=== PATIENT | female | born 1945 | race Caucasian/White ===

== ENCOUNTER 2023-10-25 17:53 | Emergency (ER) | payer MEDICARE, SELFPAY ==
[2023-10-25 18:01] VITALS: BP 130/64
--- NOTE | 2023-10-25 18:28 | ED.GENMED ---
History of Present Illness
General
Chief Complaint: Head Injury
Source: patient
Time Seen by Provider: 10/25/23 18:17
History of Present Illness
History of Present Illness:
77-year-old female presents to the emergency room for evaluation after suffering a fall. Patient states that she fell backwards striking the back of her head. She has pain in the in the location where she struck her head and a mild generalized
headache. No nausea or vomiting. She did not lose consciousness. She denies neck or back pain. She was ambulatory after the fall.
Phy Exam
Physical Exam
Physical Exam:
General: Awake, Alert, Oriented X3. No acute distress.
Vitals: unremarkable
Head: Atraumatic
Eyes: Pupils equal, EOMI, mild occipital tenderness and swelling
Throat: Airway intact, no exudates
Neck: Trachea midline, no midline tenderness to palpation, no pain with range of motion
Lungs: Clear and equal b/l
Heart: Regular rate, no murmurs
Abd: Soft, Nontender, No pulsatile mass
Neuro: Nonfocal
Skin: Warm, dry, no rash
Extremities: pulses equal b/l, no edema
Course
Orders/Labs/Results
Orders:
Orders
10/25/23 18:27
CT Cervical Spine W/o Iv Contr Urgent
Comment:
Reason For Exam: neck pain s/p fall
CT Head W/o Iv Contrast Urgent
Comment:
Reason For Exam: head injury
Acetaminophen [Tylenol] 650 mg PO NOW STA
Vital Signs
Initial and Last Documented VS:
Initial Vital Signs
Temp Pulse Resp BP Pulse Ox
98.3 F 68 16 130/64 98
10/25/23 18:01 10/25/23 18:01 10/25/23 18:01 10/25/23 18:01 10/25/23 18:01
Last Documented Vital Signs
Temp Pulse Resp BP Pulse Ox
98.3 F 68 16 130/64 98
10/25/23 18:01 10/25/23 18:01 10/25/23 18:01 10/25/23 18:01 10/25/23 18:01
MDM/Problems Addressed
Differential Diagnosis Includes:
Subdural, subarachnoid hemorrhage, contusion, concussion
MDM/Problems Addressed:
Patient presents after head injury. CT of the head and neck showed no acute abnormalities. Patient is alert and does not appear to feel uncomfortable in any way. Stable for discharge home.
*Critical Care Note
Total Time (30-74mins, 75-104mins- exclusive of procedures): Not Applicable
ED Attending Note
-
Portions of this chart may have been created with voice recognition software.� Occasional wrong word or��sound alike� substitutions may have occurred due to the inherent limitations of voice recognition software.
Discharge Plan
Departure
Patient Disposition: Home (Routine Discharge)
Date of Disposition: 10/25/23
Time of Disposition: 18:57
Patient with high blood pressure during this ER visit?: No
Condition: Good
Discharge Problem:
Head injury
Instructions: Head Injury in Adults (DC)
Interventions
Interventions:
*Risk Screen - Suicide Last Done: 10/25/23 18:01
*General Assessment Last Done: 10/25/23 18:01
*Neglect/Abuse Screening Last Done: 10/25/23 18:01
*ED COVID-19 Vaccine History Last Done: 10/25/23 18:43
*Nursing Disposition Last Done: 10/25/23 19:21
ED- Neurological Assessment Last Done: 10/25/23 18:44
ED-Skin Assessment Last Done: 10/25/23 18:44
Discharge Date and Time
Discharge Date/Time: 10/25/23 19:23
Print Language: BRAZILIAN
[2023-10-25] MEDS: TYLENOL 650 MG PO (18:42)
[2023-10-25 18:45] VITALS: BMI 33.1
== END 2023-10-25 19:23 | disposition home or self-care (01) ==
LOC: EMR 17:53
PROVIDERS: EMERGENCY PHYSICIAN Emergency Medicine; FAMILY PHYSICIAN Family Medicine
DX: S09.90XA Unspecified injury of head, initial encounter (principal); W19.XXXA Unspecified fall, initial encounter
CPT/HCPCS: 99284; 70450; 72125

== ENCOUNTER → 2023-11-20 16:25 | Outpatient (REF) | payer MEDICARE, SELFPAY | LOC: RAD 16:25 | PROVIDERS: ATTENDING PHYSICIAN Internal Medicine; FAMILY PHYSICIAN Family Medicine | DX: N18.32 Chronic kidney disease, stage 3b (principal) | CPT/HCPCS: 76770 ==

== ENCOUNTER 2024-03-01 11:28 | Emergency (ER) | payer MEDICARE, SELFPAY ==
[2024-03-01 11:30] VITALS: BP 93/72
--- NOTE | 2024-03-01 11:55 | ED.GENMED ---
History of Present Illness
General
Chief Complaint: Fall
Source: patient and family
Time Seen by Provider: 03/01/24 11:45
History of Present Illness
History of Present Illness:
78-year-old female with past medical history of atrial fibrillation, CAD status postacute RI, hypertension, hyperlipidemia, zum-[id number] diabetes presenting to the emergency department after she stumbled over a door sill causing her to fall
down striking her left shoulder and head onto the ground and also stating has some mild discomfort to both knees. There was no reported loss consciousness, vomiting, vision changes but patient reports that she is on Xarelto due to her history of
atrial fibrillation. Presently notes some mild comfort to the left shoulder but otherwise states 'I feel pretty good'.
Past History
Past History
ED Past Medical History: Arrthythmia, CAD, HTN, Hypercholesterolemia, NIDDM and [place]
ED Past Surgical History: Cardiac, Cholecystectomy, Orthopedic and Tonsilectomy
Social History
Tobacco: Non-smoker
Alcohol: None
Drug: None
Living: with family
Review of Systems
Review of Systems
All Other Systems: ROS reviewed and negative except as documented in HPI and ROS
Phy Exam
Physical Exam
Physical Exam:
GENERAL: Alert , in no apparent distress
HEAD: NCAT
EYE: conjunctiva clear
NECK: Supple, no midline ttp
ENT: o/p clr, mmm.
CARDIAC: Bradycardic rate and rhythm, systolic murmur
LUNGS: Clear breath sounds bilaterally, no acute respiratory distress, no wheezes/rales/rhonchi
NEUROLOGICAL: Alert and oriented
SKIN: Warm and dry, abrasion left lateral deltoid
MUSCULOSKELETAL: well perfused.
PSYCH: Normal and appropriate interaction.
Scores
Heart Failure Risk
Heart Failure Risk Score: Not Applicable
Heart Score for Chest Pain Patients
STEMI patient?: Not applicable
Withdrawal Assessment of Alcohol
Withdrawal Assessment Completed?: Not applicable
Course
Orders/Labs/Results
Orders:
Orders
03/01/24 11:38
EKG [Electrocardiogram (*1)] Urgent
Reason for Study: Bradycardia / Tachycardia
EKG- Treatment ONCE
03/01/24 11:45
CT Cervical Spine W/o Iv Contr Urgent
Comment:
Reason For Exam: fall, on xarelto
CT Head W/o Iv Contrast Urgent
Comment:
Reason For Exam: fall, on xarelto
Vital Signs
Initial and Last Documented VS:
Initial Vital Signs
Temp Pulse Resp BP Pulse Ox
97.7 F 56 16 93/72 99
03/01/24 11:30 03/01/24 11:30 03/01/24 11:30 03/01/24 11:30 03/01/24 11:30
Last Documented Vital Signs
Temp Pulse Resp BP Pulse Ox
97.7 F 54 16 148/64 97
03/01/24 11:30 03/01/24 12:16 03/01/24 12:16 03/01/24 12:16 03/01/24 12:16
MDM/Problems Addressed
Differential Diagnosis Includes:
Contusion, concussion, intracranial bleeding
MDM/Problems Addressed:
78-year-old female presenting to the emergency department for evaluation following accidental trip and fall resulting in mild head injury. Patient is anticoagulated on Xarelto so CT scan of the head and cervical spine were. Patient does have a
small abrasion to the left lateral shoulder. She is otherwise in no acute distress. Patient has a walker and cane that she uses at home to help her ambulate. Anticipate discharge home pending CT scan.
*Radiology
Radiology exam reviewed: radiology read reviewed
*Pulse Oximetry
Patient hypoxic: no
*Critical Care Note
Total Time (30-74mins, 75-104mins- exclusive of procedures): Not Applicable
Data Reviewed
Review of Other/Old Records Reveals: Records
Patient Management
Escalation/DeEscalation of care consider admission/obs:
Imaging is unremarkable for any acute pathologies. Patient stable for discharge home and aware of return precautions to the ER.
ED Attending Note
-
Portions of this chart may have been created with voice recognition software.� Occasional wrong word or��sound alike� substitutions may have occurred due to the inherent limitations of voice recognition software.
Discharge Plan
Departure
Patient Disposition: Home (Routine Discharge)
Date of Disposition: 03/01/24
Time of Disposition: 12:47
Patient with high blood pressure during this ER visit?: Yes
Discharge Problem:
Accidental fall, Head injury, Abrasion of left shoulder
Instructions: Preventing falls in adults
Referrals:
Wan Shaw, DO [Family Provider] -
Interventions
Interventions:
*Risk Screen - Suicide Last Done: 03/01/24 11:30
*General Assessment Last Done: 03/01/24 11:30
*Neglect/Abuse Screening Last Done: 03/01/24 11:30
ED- Fall Risk Assessment Last Done: 03/01/24 11:54
*ED COVID-19 Vaccine History Last Done: 03/01/24 11:30
*Nursing Disposition Last Done: 03/01/24 12:45
ED-Musculoskeletal Assessment Last Done: 03/01/24 11:53
ED- Neurological Assessment Last Done: 03/01/24 11:53
Discharge Date and Time
Discharge Date/Time: 03/01/24 12:45
Print Language: ICELANDIC
[2024-03-01 12:16] VITALS: BP 148/64
== END 2024-03-01 12:45 | disposition home or self-care (01) ==
LOC: EMR 11:28
PROVIDERS: EMERGENCY PHYSICIAN Student in an Organized Health Care Education/Training Program; FAMILY PHYSICIAN Family Medicine
DX: S09.90XA Unspecified injury of head, initial encounter (principal); S40.212A Abrasion of left shoulder, initial encounter; W18.09XA Striking against other object with subsequent fall, initial encounter; I25.10 Atherosclerotic heart disease of native coronary artery without angina pectoris; E11.9 Type 2 diabetes mellitus without complications; E78.00 Pure hypercholesterolemia, unspecified; I10 Essential (primary) hypertension; I25.2 Old myocardial infarction; I48.91 Unspecified atrial fibrillation; Z79.01 Long term (current) use of anticoagulants; Z90.49 Acquired absence of other specified parts of digestive tract
CPT/HCPCS: 99284; 70450; 72125; 93005

== ENCOUNTER 2024-03-14 11:06 | Emergency (ER) | payer MEDICARE, SELFPAY ==
[2024-03-14 11:08] VITALS: BP 171/73
--- NOTE | 2024-03-14 11:47 | ED.GENMED ---
History of Present Illness
General
Chief Complaint: Abdominal Symptoms
Source: patient
Exam Limitations: none
Time Seen by Provider: 03/14/24 11:45
Nursing documentation reviewed up to this point in time: agreed with
History of Present Illness
History of Present Illness:
78-year-old female with history of CAD, HTN, HLD, [place], GERD, NIDDM, A-fib with cardioversion, TAVR, bypass x 2, cholecystectomy, tonsillectomy presents from urgent care, has known umbilical hernia she's had for years and never bothered her until 4:30
a.m. awakened with 'horrible' 01/30 pain and area seems more protruding today. As she has been up and around pain now 11/30. Went to and sent here. Denies n/v/d/c.
Past History
Past History
ED Past Medical History: Arrthythmia, CAD, HTN, Hypercholesterolemia, NIDDM and GA
ED Past Surgical History: Cardiac, Cholecystectomy, Orthopedic and Tonsilectomy
Social History
Tobacco: Non-smoker
Alcohol: None
Drug: None
Living: with family
Review of Systems
Review of Systems
Allergies reviewed?: Yes
All Other Systems: ROS reviewed and negative except as documented in HPI and ROS
Constitutional: Denies fever
Respiratory: Denies trouble breathing
Cardiac: Denies chest pain
ABD/GI: Reports abdominal pain (mid epigastric area at site of chronic hernia); Denies nausea, vomiting, diarrhea, constipated or anorexia
: Denies dysuria or difficulty voiding
Musculoskeletal: Reports no symptoms
Skin: Reports no symptoms
Neurological: Reports no symptoms
Phy Exam
Physical Exam
Physical Exam:
GENERAL: No acute distress. A&Ox3.
CONSTITUTIONAL: Afebrile.
EYES: clear, conjunctivae normal
ENMT: moist mucus membranes, Pharynx nl
RESPIRATORY: Regular respirations, nonlabored, lungs clear.
CARDIOVASCULAR: Regular rate and rhythm, no murmurs, no rubs.
GI: Soft, obese, small orange sized tender soft protrusion mid epigastric area. normal BS
MUSCULOSKELETAL: Moves with ease. Well perfused. No edema
SKIN: Warm, dry, pink
PSYCH: Normal mood and affect. Well kept, interactive and appropriate
NEUROLOGIC: Awake, alert and oriented. No focal neurological deficits
Course
Orders/Labs/Results
Orders:
Orders
03/14/24 12:08
CT Abd/pel Without Iv Or Oral Urgent
Reason For Exam: pain with protruding (known hernia) upper mid abd
03/14/24 12:29
Complete Blood Count/With Diff Urgent
Comprehensive Metabolic Panel Urgent
Abnormal Lab Results
03/14/24
12:29
RBC 3.64 L 10^6/uL
(4.20-5.40)
Hgb 10.4 L g/dL
(12.0-16.0)
Hct 33.5 L %
(37.0-47.0)
MCHC 31.0 L g/dL
(33.0-37.0)
RDW 15.4 H %
(11.5-14.5)
BUN 34 H mg/dl
(7-17)
Creatinine 1.8 H mg/dL
(0.6-1.0)
Glucose 145 H mg/dl
(70-99)
03/14/24 12:29
03/14/24 12:29
Vital Signs
Initial and Last Documented VS:
Initial Vital Signs
Temp Pulse Resp BP Pulse Ox
97.9 F 56 18 171/73 97
03/14/24 11:08 03/14/24 11:08 03/14/24 11:08 03/14/24 11:08 03/14/24 11:08
Last Documented Vital Signs
Temp Pulse Resp BP Pulse Ox
97.9 F 60 16 117/70 97
03/14/24 11:08 03/14/24 14:00 03/14/24 14:00 03/14/24 14:00 03/14/24 14:00
MDM/Problems Addressed
Differential Diagnosis Includes:
hernia, strangulated hernia
MDM/Problems Addressed:
78-year-old female with history of CAD, HTN, HLD, GA, GERD, NIDDM, A-fib with cardioversion, TAVR, bypass x 2, cholecystectomy, tonsillectomy presents from urgent care, has known umbilical hernia she's had for years and never bothered her until 4:30
a.m. awakened with 'horrible' 01/30 pain and area seems more protruding today. States 'it never buldged out like this.' As she has been up and around pain a little improved, now 11/30. Went to and sent here. Denies n/v/d/c.
Afebrile, NAD
Abd with soft tender protrusion the size of a small orange mid upper abdomen area
Unable to reduce it at this time.
1:00 p.m.
CBC no clinically significant abnormality
CMP BUN/Creat 34/1.8 GFR 28[address] scan changed to plain w/o IV contrast. She does say she has kidney issues and has appt with Dr. Haskins in April.
3:[address] abd/pelvis radiology report read: IMPRESSION:
There is an anterior abdominal wall hernia containing only fat.
Some relief of pain after attempt to reduce and pt states it does feel better if she pushes on it.
Pt states pain in 10
Unable to reduce it after two attempts.
She is referred to general surgery.
*Critical Care Note
Total Time (30-74mins, 75-104mins- exclusive of procedures): Not Applicable
ED Attending Note
-
Portions of this chart may have been created with voice recognition software.� Occasional wrong word or��sound alike� substitutions may have occurred due to the inherent limitations of voice recognition software.
Discharge Plan
Departure
Patient Disposition: Home (Routine Discharge)
Date of Disposition: 03/14/24
Time of Disposition: 15:54
Patient with high blood pressure during this ER visit?: No
Condition: Good
Discharge Problem:
Abdominal wall hernia
Instructions: Abdominal wall hernias
Prescriptions:
No Action
atorvastatin [Lipitor] 40 mg Tablet
80 mg PO DAILY
torsemide 20 mg Tablet
20 mg PO DAILY
topiramate 25 mg Tablet
25 mg PO QPM
levothyroxine [Synthroid] 112 mcg Tablet
112 mcg PO DAILY
acetaminophen [Tylenol] 325 mg Tablet
650 mg PO QPM
gabapentin 400 mg Capsule
400 mg PO BID
glipizide 5 mg Tablet Extended Release 24hr
5 mg PO DAILY
melatonin 3 mg Tablet
3 mg PO HS
pantoprazole [Protonix] 40 mg Tablet,Delayed Release (Dr/Ec)
40 mg PO DAILY
allopurinol 300 mg Tablet
300 mg PO DAILY
zolpidem [Ambien] 5 mg Tablet
5 mg PO HSPRN PRN (Reason: sleep)
oxybutynin chloride 5 mg Tablet
5 mg PO QPM
cholecalciferol (vitamin D3) [Vitamin D3] 25 mcg (1,000 unit) Tablet
25 mcg PO DAILY
Tradjenta 5 mg Tablet
5 mg PO QPM
Xarelto 15 mg Tablet
15 mg PO DAILY
Jardiance 25 mg Tablet
25 mg PO DAILY
Referrals:
Narciso Peguero MD [Active] - Call in 1-3 days for appt
Wan Shaw DO [Family Provider] -
Activity Restrictions/Additional Instructions:
As we discussed, you have a hernia with some fat protrusion, nothing worrisome.
Call the general surgeon's office and make next available appointment.
Tylenol 1000 mg every 8 hours as needed for mild pain.
You may lay flat on your back and try to push it in like I showed you.
Return here immediately for worsening pain, unrelieved with pushing on it.
Interventions
Interventions:
*Risk Screen - Suicide Last Done: 03/14/24 11:11
*General Assessment Last Done: 03/14/24 12:28
*Neglect/Abuse Screening Last Done: 03/14/24 11:11
ED- Fall Risk Assessment Last Done: 03/14/24 13:46
OW-Oswubz-Scteubdajf Assessment Last Done: 03/14/24 12:28
Discharge Date and Time
Print Language: FRENCH
[2024-03-14 12:28] VITALS: BMI 35.3
[2024-03-14 12:38] LABS: % Basophils 0.5 % (0-2); % Eosinophils 1.2 % (0-6); % Immature Granulocytes 0.3 % (0-0.5); % Lymphocytes 29.8 % (20.5-51.1); % Monocytes 7.4 % (1.7-9.3); % Neutrophils 60.8 % (42.2-75.2); Absolute Eosinophils 0.1 10^3/uL (0-0.7); Absolute Lymphocytes 1.9 10^3/uL (1.2-3.4); Absolute Monocytes 0.5 10^3/uL (0.1-0.6); Absolute Neutrophils 3.9 10^3/uL (1.4-6.5); Hematocrit 33.5 % (37.0-47.0); Hemoglobin 10.4 g/dL (12.0-16.0); Mean Corpuscular Hgb 28.6 pg (27.0-31.0); Mean Platelet Volume 9.8 fL (7.4-10.4); Nucleated Red Blood Cells % 0 %; Platelet Count 147 10^3/uL (130-400); Red Blood Cell Count 3.64 10^6/uL (4.20-5.40); Red Cell Dist. Width 15.4 % (11.5-14.5); White Blood Cell Count 6.5 10^3/uL (4.8-10.8)
[2024-03-14 12:57] LABS: ALT (SGPT) 19 U/L (0-35); AST (SGOT) 24 U/L (14-36); Albumin 4.6 g/dl (3.5-5.0); Alkaline Phosphatase 103 U/L (38-126); Blood Urea Nitrogen 34 mg/dl (7-17); Calcium 9.7 mg/dl (8.4-10.2); Carbon Dioxide 27 mmol/L (22-30); Chloride 103 mmol/L (98-107); Estimated Creatinine Clearance 24 ml/min; Glucose 145 mg/dl (70-99); Potassium 4.4 mmol/L (3.5-5.1); Sodium 141 mmol/L (135-145); Total Bilirubin 0.6 mg/dl (0.2-1.3); Total Protein 7.3 g/dl (6.3-8.2); eGFR 28.48
[2024-03-14 14:00] VITALS: BP 117/70
[2024-03-14 16:35] VITALS: BP 135/74
== END 2024-03-14 16:35 | disposition home or self-care (01) ==
LOC: EMR 11:06
PROVIDERS: Registered Nurse; EMERGENCY PHYSICIAN Emergency Medicine; FAMILY PHYSICIAN Family Medicine
DX: K43.9 Ventral hernia without obstruction or gangrene (principal); I25.10 Atherosclerotic heart disease of native coronary artery without angina pectoris; I10 Essential (primary) hypertension; E78.00 Pure hypercholesterolemia, unspecified; I25.2 Old myocardial infarction; K21.9 Gastro-esophageal reflux disease without esophagitis; E11.9 Type 2 diabetes mellitus without complications; Z95.2 Presence of prosthetic heart valve
CPT/HCPCS: 99284; 74176; 80053; 85025

== ENCOUNTER → 2024-03-28 17:24 | Outpatient (REF) | payer MEDICARE, SELFPAY | LOC: RAD 17:24 | PROVIDERS: ATTENDING PHYSICIAN Anesthesiology; FAMILY PHYSICIAN Family Medicine | DX: M25.561 Pain in right knee (principal); M48.062 Spinal stenosis, lumbar region with neurogenic claudication; M54.16 Radiculopathy, lumbar region | CPT/HCPCS: 72110; 73564 ==

== ENCOUNTER → 2024-05-23 10:40 | Outpatient (REF) | payer MEDICARE, SELFPAY | LOC: PAVMRI 10:40 | PROVIDERS: ATTENDING PHYSICIAN Anesthesiology; FAMILY PHYSICIAN Family Medicine; REFERRING PHYSICIAN Neurological Surgery | DX: M54.50 Low back pain, unspecified (principal); M54.16 Radiculopathy, lumbar region | CPT/HCPCS: 72148 ==

== ENCOUNTER → 2024-08-28 11:11 | Outpatient (REF) | payer MEDICARE, SELFPAY | LOC: RCS 11:11 | PROVIDERS: ATTENDING PHYSICIAN Internal Medicine Cardiovascular Disease; FAMILY PHYSICIAN Family Medicine | DX: I63.9 Cerebral infarction, unspecified (principal) | CPT/HCPCS: 93306 ==

== ENCOUNTER 2024-08-28 22:41 | Inpatient (IN) | payer MEDICARE, SELFPAY ==
[2024-08-28 18:22] VITALS: BP 141/74
[2024-08-28 18:36] LABS: % Basophils 0.4 % (0-2); % Eosinophils 1.9 % (0-6); % Immature Granulocytes 0.3 % (0-0.5); % Monocytes 8.5 % (1.7-9.3); % Neutrophils 54.9 % (42.2-75.2); Absolute Eosinophils 0.1 10^3/uL (0-0.7); Absolute Lymphocytes 2.5 10^3/uL (1.2-3.4); Absolute Monocytes 0.6 10^3/uL (0.1-0.6); Hematocrit 29.1 % (37.0-47.0); Mean Corp Hgb Conc. 30.9 g/dL (33.0-37.0); Mean Corpuscular Hgb 26.5 pg (27.0-31.0); Mean Corpuscular Volume 85.8 fL (81.0-99.0); Mean Platelet Volume 10.2 fL (7.4-10.4); Nucleated Red Blood Cells % 0 %; Platelet Count 207 10^3/uL (130-400); Red Blood Cell Count 3.39 10^6/uL (4.20-5.40); Red Cell Dist. Width 16.7 % (11.5-14.5); White Blood Cell Count 7.3 10^3/uL (4.8-10.8)
[2024-08-28 18:55] LABS: ALT (SGPT) 15 U/L (0-35); AST (SGOT) 22 U/L (14-36); Albumin 4.2 g/dl (3.5-5.0); Alkaline Phosphatase 89 U/L (38-126); Blood Urea Nitrogen 22 mg/dl (7-17); Calcium 9.5 mg/dl (8.4-10.2); Carbon Dioxide 28 mmol/L (22-30); Chloride 104 mmol/L (98-107); Glucose 116 mg/dl (70-99); Potassium 4.2 mmol/L (3.5-5.1); Sodium 140 mmol/L (135-145); Total Bilirubin 0.7 mg/dl (0.2-1.3)
[2024-08-28 19:00] LABS: NT-proBNP 4320 pg/ml
[2024-08-28 20:44] VITALS: BP 159/74
--- NOTE | 2024-08-28 20:49 | ED.GENMED ---
History of Present Illness
General
Chief Complaint: Swelling
Source: patient
Exam Limitations: none
Time Seen by Provider: 08/28/24 20:23
Nursing documentation reviewed up to this point in time: agreed with
History of Present Illness
History of Present Illness:
Patient very pleasant 78-year-old female lives alone presents with lower extremity edema fatigue dyspnea exertion trouble ambulating unable to lie flat, does suffer from urinary incontinence, previously on a diuretic it appears not currently, has
had weight gain, no fevers denies chest pain
Past History
Past History
ED Past Medical History: Arrthythmia, CAD, HTN, Hypercholesterolemia, NIDDM and [place]
ED Past Surgical History: Cardiac, Cholecystectomy, Orthopedic and Tonsilectomy
Social History
Tobacco: Non-smoker
Alcohol: None
Drug: None
Personal:
Living: alone
Employment: Retired
Review of Systems
Review of Systems
All Other Systems: Not applicable
Constitutional: Reports fatigue; Denies fever
EENT: Reports no symptoms
Respiratory: Reports trouble breathing
Cardiac: Denies chest pain
ABD/GI: Reports no symptoms
: Reports incontinence
Musculoskeletal: Reports edema
Neurological: Reports weakness
Endocrine: Reports no symptoms
Psychiatric: Reports no symptoms
Phy Exam
Physical Exam
Physical Exam:
Physical Exam
General: Slightly tachypneic
Neck: No jaw
Heart: Regular
Lungs: Faint crackle
Abdomen: Not tender
Neuro: alert and oriented. no focal neurological deficits
Skin: no rash
Psychiatric: well kept. interactive and cooperative
Extremities: Edema is present
Scores
Heart Failure Risk
Heart Failure Risk Score: Yes
History of Stroke or TIA: No
History of intubation for respiratory distress: No
Heart rate on ED arrival >/= 110: No
SaO2 <90% on arrival on room air: No
HR >/=110 during 3min walk test (or too ill to perform test): Yes
ECG has acute ischemic changes: No
Urea >/=12mmol/L (BUN 33.6mg/dL): No
Serum CO2>/=35mmol/L: No
Troponin I or T elevated to [place] Level (0.4mg/dL): No
NT-proBNP >/=5,000ng/L (5,000pg/ml): No
HF Risk Score: 2
Admission Status: MEDIUM RISK 9.2% Consider observation or discharge to home with homecare & f/u visit to PCP/[facility], or SNF for treatment
Course
Orders/Labs/Results
Orders:
Orders
08/28/24 18:30
Complete Blood Count/With Diff Urgent
Comprehensive Metabolic Panel Urgent
NT-proBNP Urgent
Troponin I Urgent
Comment: ADD ON
08/28/24 20:23
CR Chest - 2 Views Urgent
Comment:
Reason For Exam: edema
08/28/24 20:24
Add On- LAB Urgent
Tests Added?: trop
08/28/24 20:49
Furosemide [Lasix] 40 mg IV NOW STA
Abnormal Lab Results
08/28/24
18:30
RBC 3.39 L 10^6/uL
(4.20-5.40)
Hgb 9.0 L g/dL
(12.0-16.0)
Hct 29.1 L %
(37.0-47.0)
MCH 26.5 L pg
(27.0-31.0)
MCHC 30.9 L g/dL
(33.0-37.0)
RDW 16.7 H %
(11.5-14.5)
BUN 22 H mg/dl
(7-17)
Creatinine 1.7 H mg/dL
(0.6-1.0)
Glucose 116 H mg/dl
(70-99)
08/28/24 18:30
08/28/24 18:30
Vital Signs
Initial and Last Documented VS:
Initial Vital Signs
Temp Pulse Resp BP Pulse Ox
98.2 F 63 16 141/74 96
08/28/24 18:22 08/28/24 18:22 08/28/24 18:22 08/28/24 18:22 08/28/24 18:22
Last Documented Vital Signs
Temp Pulse Resp BP Pulse Ox
98.2 F 57 16 143/61 96
08/28/24 18:22 08/28/24 21:29 08/28/24 18:22 08/28/24 21:29 08/28/24 18:22
MDM/Problems Addressed
Differential Diagnosis Includes:
Heart failure dependent edema nephrotic syndrome DVT late presentation [place] symptomatic anemia
MDM/Problems Addressed:
Leg edema
Chronic conditions affecting care: DM, HTN, CAD and Cardiomyopathy
Acute Exacerbation and/or Progression of Chronic Illness: HTN, CAD and Cardiomyopathy
*Radiology
Radiology exam reviewed: radiology read reviewed
*Pulse Oximetry
Patient hypoxic: no
*EKG
Interpreted by ED Provider?: Yes
Interpretation: abnormal
Comparison EKG: no comparison EKG present
Heart Rate: 78
Rate: normal
Rhythm: sinus
Ischemia: non-specific ST changes
*[place] [facility] Interpretation
Rate: normal
Interpretation: normal
Heart Rate: 78
Rhythm: sinus
*Critical Care Note
Total Time (30-74mins, 75-104mins- exclusive of procedures): Not Applicable
Data Reviewed
Review of Other/Old Records Reveals: Labs
Source: patient
ED Attending Note
-
Portions of this chart may have been created with voice recognition software.� Occasional wrong word or��sound alike� substitutions may have occurred due to the inherent limitations of voice recognition software.
Discharge Plan
Departure
Prescriptions:
No Action
atorvastatin [Lipitor] 40 mg Tablet
80 mg PO DAILY
torsemide 20 mg Tablet
20 mg PO DAILY
topiramate 25 mg Tablet
25 mg PO QPM
levothyroxine [Synthroid] 112 mcg Tablet
112 mcg PO DAILY
acetaminophen [Tylenol] 325 mg Tablet
650 mg PO QPM
gabapentin 400 mg Capsule
400 mg PO BID
glipizide 5 mg Tablet Extended Release 24hr
5 mg PO DAILY
melatonin 3 mg Tablet
3 mg PO HS
pantoprazole [Protonix] 40 mg Tablet,Delayed Release (Dr/Ec)
40 mg PO DAILY
allopurinol 300 mg Tablet
300 mg PO DAILY
zolpidem [Ambien] 5 mg Tablet
5 mg PO HSPRN PRN (Reason: sleep)
oxybutynin chloride 5 mg Tablet
5 mg PO QPM
cholecalciferol (vitamin D3) [Vitamin D3] 25 mcg (1,000 unit) Tablet
25 mcg PO DAILY
Tradjenta 5 mg Tablet
5 mg PO QPM
Xarelto 15 mg Tablet
15 mg PO DAILY
Jardiance 25 mg Tablet
25 mg PO DAILY
Referrals:
Wan Shaw DO [Family Provider] -
Interventions
Interventions:
*Risk Screen - Suicide Last Done: 08/28/24 18:22
*General Assessment Last Done: 08/28/24 18:22
*Neglect/Abuse Screening Last Done: 08/28/24 18:22
*ED- Fall Risk Assessment Last Done: 08/28/24 21:28
*ED COVID-19 Vaccine History Last Done: 05/08/25 18:22
Discharge Date and Time
Print Language: SERBIAN
[2024-08-28 21:19] LABS: Troponin I 0.018 ng/ml
[2024-08-28 21:27] VITALS: BP 143/61
[2024-08-28 21:28] VITALS: BMI 34.7
[2024-08-28] MEDS: LASIX 40 MG IV (21:29)
--- NOTE | 2024-08-28 21:46 | HPS.HSE ---
Family Physician
-
Family Physician: Wan Shaw
Chief Complaint
-
Bilateral leg swelling
History of Present Illness
This is a 78-year-old with past medical history of atrial fibrillation on anticoagulation, CAD status post CABG and status post PCI in the past, hypertension hyperlipidemia uph-cdzrqrb-jzkxbgdch diabetes, and aortic stenosis status post TAVR 2022
presenting to the emergency department with approximately 1 month of bilateral lower extremity swelling.
Patient reported that she started noticing the swelling about 1 month ago. Initially it was intermittent and improves after an overnight sleep however more recently it has been more persistent. She also said that she has gained about 20 pounds
over the last month and about 10 pounds in the last week. She reports that she takes her torsemide 20 mg regularly and has not been skipping or missing doses. She denies any other medication changes. She denies any difficulty with urination. She
denies any NSAID use.
Patient denies having any chest pain. He denies any palpitations. She denies orthopnea or PND. She does report slightly decreased exercise tolerance and increased daytime somnolence. She saw her PMD today with noted increased swelling in her
lower extremities and sent her to the emergency department for further evaluation.
Patient also had routine follow-up echo per key account representative today
In the emergency department she was afebrile, blood pressure was 143/61 with a pulse of 57 and she was satting 96% on room air. ECG was unremarkable. X-ray with cardiomegaly and mild interstitial and alveolar cardiogenic pulmonary edema. Troponin
was -0.018. BNP was 4300.
The CBC notable for hemoglobin of 9 but otherwise unremarkable. Electrolytes were in the normal range. BUN/creatinine were 22 and 1.7 respectively.
Medical History
Past Medical History
Past Medical History: Reports Arrhythmia (A-fib on Xarelto), CAD (Status post angioplasty, status post CABG), CVA, HTN, Hypercholesterolemia, NIDDM, Valvular Disease (Aortic stenosis status post TAVR) and Other (Gout)
Past Surgical History: Reports Cardiac (TAVR 2022), Cholecystectomy, Orthopedic and Tonsilectomy
Social History
Tobacco: Non-smoker
Alcohol: None
Drug: None
Personal: Single
Living: Assisted Living
Employment: Retired
Family History
Family History: Not pertinent
Allergies / Home Medications
Allergies reflects when Allergies were last updated in [facility].
Home Medications with original date entered in [facility]
Allergy/Medication List:
Allergies
Allergy/AdvReac Type Severity Reaction Status Date / Time
No Known Allergies Allergy Verified 08/28/24 18:25
Home Medications
acetaminophen 325 mg tablet (Tylenol) 650 mg PO QPM 03/14/24
allopurinol 300 mg tablet 300 mg PO DAILY 03/14/24
atorvastatin 40 mg tablet (Lipitor) 80 mg PO DAILY 03/14/24
cholecalciferol (vitamin D3) 25 mcg (1,000 unit) tablet (Vitamin D3) 25 mcg PO DAILY 03/14/24
empagliflozin 25 mg tablet (Jardiance) 25 mg PO DAILY 03/14/24
gabapentin 400 mg capsule 400 mg PO BID 03/14/24
glipizide 5 mg tablet, extended release 24 hr 5 mg PO DAILY 03/14/24
levothyroxine 112 mcg tablet (Synthroid) 112 mcg PO DAILY 03/14/24
linagliptin 5 mg tablet (Tradjenta) 5 mg PO QPM 03/14/24
melatonin 3 mg tablet 3 mg PO HS 03/14/24
oxybutynin chloride 5 mg tablet 5 mg PO QPM 03/14/24
pantoprazole 40 mg tablet,delayed release (Protonix) 40 mg PO DAILY 03/14/24
rivaroxaban 15 mg tablet (Xarelto) 15 mg PO DAILY 03/14/24
topiramate 25 mg tablet 25 mg PO QPM 03/14/24
torsemide 20 mg tablet 20 mg PO DAILY 03/14/24
zolpidem 5 mg tablet (Ambien) 5 mg PO HSPRN PRN sleep 03/14/24
Review of Systems
-
History Source: Patient
Constitutional: Reports No Symptoms
EENT: Reports No Symptoms
Respiratory: Reports No Symptoms
Cardiac: Reports No Symptoms
Abdomen/GI: Reports No Symptoms
: Reports No Symptoms
Musculoskeletal: Reports Edema
Skin: Reports No Symptoms
Neurological: Reports No Symptoms
Endocrine: Reports No Symptoms
Hematologic/Lymphatic: Reports No Symptoms
Psych: Reports No Symptoms
Physical Exam
Vital Signs
Vital Signs
Temp Pulse Resp BP Pulse Ox
98.2 F 57 16 143/61 96
08/28/24 18:22 08/28/24 21:29 08/28/24 18:22 08/28/24 21:29 08/28/24 18:22
Physical Exam
General: Well Developed, Well Nourished, No Apparent Distress and Comfortable
HEENT: NormoCephalic, Anicteric, Moist mucous membranes and Atraumatic
Cardiac: S1/S2 and Regular Rhythm
Breast: Deferred by me
GI: Soft, Non Tender, Non Distended and Normal Bowel Sounds
Rectal: Deferred by Provider
Genito-urinary: Deferred by me
Musculoskeletal: No Clubbing, No Cyanosis, Edema, Left Lower Extremity and Edema, Right Lower Extremity
Skin: Warm
Neuro: AO x 3 and Nonfocal/grossly intact
Hematologic/Lymphatic: No Lymphadenopathy
Psych: Calm
Laboratory Results
-
08/28/24 18:30
08/28/24 18:30
Laboratory Results
Total Bilirubin 0.7 mg/dl (0.2-1.3) 08/28/24 18:30
AST 22 U/L (14-36) 08/28/24 18:30
ALT 15 U/L (0-35) 08/28/24 18:30
Alkaline Phosphatase 89 U/L (38-126) 08/28/24 18:30
Troponin I Cancelled 08/28/24 20:23
Data Reviewed
-
Diagnostic Radiology: Image Personally Visualized and interpreted and Report Reviewed by me
Medical Tests (Nuc Med, Echo, EKG etc): Report Reviewed by me
Lab Data: Labs Reviewed by me
Old Records: Reviewed
Impression/Plan
-
IMPRESSION:
78-year-old with history of CAD status post CABG and PCI in the past, aortic stenosis status post TAVR 2022, ischemic cardiomyopathy with preserved EF of around 50% who presents to the emergency department with approximately 1 month of increasing
lower extremity swelling and approximately 20 pound weight gain despite ongoing use of torsemide 20 mg daily. She has decreased exercise tolerance but otherwise denies any other symptoms such as orthopnea PND or shortness of breath at rest. X-ray
shows increased pulmonary edema. It also shows cardiomegaly. BNP is elevated at 4300. She has not been having any chest pain and ECG is nonischemic. She had an echocardiogram done routinely today already which shows a preserved EF of 51% and
well-seated normal functioning of TAVR.
PLAN:
1. CHF -subacute CHF exacerbation suspected with increasing weight gain and bilateral lower extremity edema. Renal function is stable compared to prior.
- admit to telemetry
- start lasix 60mg iv q 12 for now (she is on torsemide 20 daily)
- follow daily weights and i/os
- continue her jardiance (farxiga)
- cardiology consultation
2. AFIB - Not currently on rate control
- continue Xarelto
- monitor on telemetry
3. DM II
- glipizide 5
- continue linagliptin and farxiga
- sliding scale insulin
4. Anemia - Fatigue, sleepiness. Hgb down trending to 9. Normocytic. On AC but no h/o blood loss.
- checking tsh
- check iron panel
- check b12
- stool guaiac
DVT PPx - on Xarelto
Code status - Limited DNR: Do Not Intubate
[2024-08-28 22:00] VITALS: BP 150/63
[2024-08-28 23:00] VITALS: BP 152/65
[2024-08-29] VITALS (9 sets, daily range): BP systolic 123–155; BP diastolic 61–95; BMI 32.5; BMI 32.4
[2024-08-29] MEDS: TYLENOL 650 MG PO (04:35)
[2024-08-29 05:28] LABS: Blood Urea Nitrogen 21 mg/dl (7-17); Carbon Dioxide 27 mmol/L (22-30); Chloride 105 mmol/L (98-107); Estimated Creatinine Clearance 29 ml/min; Glucose 161 mg/dl (70-99); HDL Cholesterol 65 mg/dl; Iron 69 ug/dl (37-170); LDL Cholesterol, Calculated 58 mg/dl; Magnesium 2.1 mg/dl (1.6-2.3); Potassium 3.8 mmol/L (3.5-5.1); Sodium 141 mmol/L (135-145); Total Cholesterol 157 mg/dl (50-199); Triglyceride 171 mg/dl (10-149); Very Low Density Lipoprotein 34 mg/dl (0-30); eGFR 32.81
[2024-08-29 05:38] LABS: Percent Saturation 16 % (20-50); Total Iron Binding Capacity 422 ug/dl (265-497)
[2024-08-29 05:58] LABS: TSH Reflex To Free T4 0.42 uIU/ml (0.47-4.68)
[2024-08-29 06:02] LABS: Ferritin 9.6 ng/ml (11.1-264.0)
[2024-08-29 06:17] LABS: Vitamin B12 187 pg/ml (239-931)
[2024-08-29] MEDS: PROTONIX 40 MG PO (08:07)
[2024-08-29] MEDS: LIPITOR 80 MG PO (08:07)
[2024-08-29] MEDS: FARXIGA 10 MG PO (08:07)
[2024-08-29] MEDS: ZYLOPRIM 300 MG PO (08:07)
[2024-08-29] MEDS: LASIX 60 MG IV ×2 (08:08→16:08)
[2024-08-29] MEDS: NEURONTIN 400 MG PO ×2 (08:08→20:37)
[2024-08-29] MEDS: XARELTO 15 MG PO (08:08)
[2024-08-29] MEDS: SYNTHROID 112 MCG PO (09:30)
[2024-08-29 09:45] LABS: Glucose - Point of Care 155 mg/dl (70-99)
[2024-08-29] MEDS: VITAMIN B-12 1000 MCG PO (10:02)
--- NOTE | 2024-08-29 10:31 | CON.CAR ---
Consultation
Consultation Request
Date/Time Consultation Requested: August 29, 2024 7 AM
Date/Time Consultation Performed: Aug 29 2024 9 AM
Requesting Provider: Hospitalist
Performing Provider: Rakesh Wilhelm
Reason for Consultation: HF
Medical History
-
Chief Complaint: Weight gain LE edema
History of Present Illness:
78-year-old female with past medical history of A-fib on Xarelto, CAD status post CABG and PCI, hypertension, dyslipidemia, type 2 diabetes, status post TAVR in 2022, and HFpEF who is here for 1 month of weight gain and lower extremity edema.
She tells me that she has noticed weight gain over the last month. She recently moved to a new community and believes that this could be contributing to her weight gain. She has not been telling them that she needs panel low-salt diet. Over the
last month she tells me she has gained 10 to 20 pounds. She has been taking her torsemide 20 mg regularly but feels it has not been working. She recently had an echocardiogram yesterday. In the emergency room she had a chest x-ray that showed
cardiomegaly with mild interstitial and alveolar cardiogenic pulmonary edema. Trope was mildly elevated 0.018. And BNP was 4300.
Past Medical History
Past Medical History: Other (A-fib on Xarelto, CAD status post CABG and PCI, hypertension, dyslipidemia, type 2 diabetes, status post TAVR in 2022, and HFpEF)
Past Surgical History: Cholecystectomy, Orthopedic, Tonsilectomy and Other (tavr)
Social History
Tobacco: Non-Smoker
Alcohol: None
Drug: None
Personal: Single
Living: Assisted Living
Employment: Retired
Family History
Family History: Reviewed & Not Pertinent
Allergies / Home Medications
Allergy/AdvReac Type Severity Reaction Status Date / Time
No Known Allergies Allergy Verified 08/28/24 18:25
�Medication �Instructions �Recorded �Confirmed �Type
acetaminophen 325 mg tablet 650 mg PO QPM 03/14/24 03/14/24 History
(Tylenol)
allopurinol 300 mg tablet 300 mg PO DAILY 03/14/24 03/14/24 History
atorvastatin 40 mg tablet (Lipitor) 80 mg PO DAILY 03/14/24 03/14/24 History
cholecalciferol (vitamin D3) 25 25 mcg PO DAILY 03/14/24 03/14/24 History
mcg (1,000 unit) tablet (Vitamin
D3)
empagliflozin 25 mg tablet 25 mg PO DAILY 03/14/24 03/14/24 History
(Jardiance)
gabapentin 400 mg capsule 400 mg PO BID 03/14/24 03/14/24 History
glipizide 5 mg tablet, extended 5 mg PO DAILY 03/14/24 03/14/24 History
release 24 hr
levothyroxine 112 mcg tablet 112 mcg PO DAILY 03/14/24 03/14/24 History
(Synthroid)
linagliptin 5 mg tablet (Tradjenta) 5 mg PO QPM 03/14/24 03/14/24 History
melatonin 3 mg tablet 3 mg PO HS 03/14/24 03/14/24 History
oxybutynin chloride 5 mg tablet 5 mg PO QPM 03/14/24 03/14/24 History
pantoprazole 40 mg tablet,delayed 40 mg PO DAILY 03/14/24 03/14/24 History
release (Protonix)
rivaroxaban 15 mg tablet (Xarelto) 15 mg PO DAILY 03/14/24 03/14/24 History
topiramate 25 mg tablet 25 mg PO QPM 03/14/24 03/14/24 History
torsemide 20 mg tablet 20 mg PO DAILY 03/14/24 03/14/24 History
zolpidem 5 mg tablet (Ambien) 5 mg PO HSPRN PRN sleep 03/14/24 03/14/24 History
Review of Systems
-
All other systems: Negative unless noted
Physical Exam
Vital Signs
Temp Pulse Resp BP Pulse Ox
98.7 F 62 16 138/66 98
08/29/24 08:29 08/29/24 08:29 08/29/24 08:29 08/29/24 08:29 08/29/24 08:29
Lab Results
08/28/24 18:30
08/29/24 04:51
Troponin I Cancelled 08/28/24 20:23
Rqh-E-Mluftlvfrxi Pept 4320 pg/ml 08/28/24 18:30
Physical Exam
General: Well Developed, Well Nourished and No Apparent Distress
HEENT: Normocephalic
Respiratory: Crackles
Cardiac: S1/S2, Regular Rhythm and Murmur
GI: Soft
Musculoskeletal: Edema
Skin: Warm and Dry
Neuro: AO x 3
Psych: Calm
Impression / Plan
-
A/P: 78-year-old female with past medical history of A-fib on Xarelto, CAD status post CABG and PCI, hypertension, dyslipidemia, type 2 diabetes, status post TAVR in 2022, and HFpEF who is here for 1 month of weight gain and lower extremity edema.
Acute on chronic HFpEF
- Cont IV diuresis Lasix 60 mg IV BID, unclear goal dry weight
- cont jardiance
- K>4 Mag > 2
- echo below
- appears to be from dietary indiscretion at new assisted living
CAD s/p CABG and PCI
- stable no CP trop likely nonischemic myocardial injury 2/2 HF
- Cont Xarelto and statin
Paroxysmal AF
- in sinus cont xarelto
Dyslipidemia
- cont statin
DM2
- on sglt2i cont
echo Aug 28 2024: CONCLUSIONS
LV ejection fraction is 51% by Centeno's method of discs.
Basal to apical septal hypokinesis.
Stage I diastolic dysfunction suggestive of abnormal relaxation.
Well seated, normally functioning #23 mm Hoyt Ultra Resilia TAVR. Peak/mean
gradient 21/11 mmHg.
Ascending aorta measures 3.9 cm.
Compared to previous echo 05/02/23, the findings are similar.
Data Reviewed
-
EKG: Tracing Personally Visualized and interpreted (sr)
Medical Tests (Nuc Med, Echo etc): Report Reviewed by me
Labs: Labs Reviewed by me
[2024-08-29] MEDS: NOVOLOG FLEXPEN-LOW RESISTANCE SC ×3 (11:20→17:39)
--- NOTE | 2024-08-29 12:38 | W.PN.HOSP.TC ---
Today's Communication/Plan
-
Continue with aggressive diuresis
Continue to monitor creatinine closely
Strict I's and O's
Daily weights
Assessment / Plan
Assessment / Plan
General: Well Developed, Well Nourished, No Apparent Distress and Comfortable
HEENT: NormoCephalic, Anicteric, Moist mucous membranes and Atraumatic
Cardiac: S1/S2 and Regular Rhythm
Breast: Deferred by me
GI: Soft, Non Tender, Non Distended and Normal Bowel Sounds
Rectal: Deferred by Provider
Genito-urinary: Deferred by me
Musculoskeletal: No Clubbing, No Cyanosis, Edema, Left Lower Extremity and Edema, Right Lower Extremity
Skin: Warm
Neuro: AO x 3 and Nonfocal/grossly intact
Hematologic/Lymphatic: No Lymphadenopathy
Psych: Calm
IMPRESSION:
78-year-old with history of CAD status post CABG and PCI in the past, aortic stenosis status post TAVR 2022, ischemic cardiomyopathy with preserved EF of around 50% who presents to the emergency department with approximately 1 month of increasing
lower extremity swelling and approximately 20 pound weight gain despite ongoing use of torsemide 20 mg daily. She has decreased exercise tolerance but otherwise denies any other symptoms such as orthopnea PND or shortness of breath at rest. X-ray
shows increased pulmonary edema. It also shows cardiomegaly. BNP is elevated at 4300. She has not been having any chest pain and ECG is nonischemic. She had an echocardiogram done routinely today already which shows a preserved EF of 51% and
well-seated normal functioning of TAVR.
PLAN:
Acute on chronic HFpEF
CAD status post CABG
- start lasix 60mg iv q 12 for now (she is on torsemide 20 daily)
- follow daily weights and i/os. Requested nursing monitoring
- continue her jardiance (farxiga)
- Echo with EF of 51%. Stage I diastolic dysfunction.
Paroxysmal AFIB - Not currently on rate control
- continue Xarelto
- monitor on telemetry
Chronic kidney disease stage IIIb
- Monitor creatinine closely with diuresis.
DM II
- Continue with farxiga . Hold other p.o. medication
- sliding scale insulin and Accu-Cheks
Anemia - Fatigue, sleepiness. Hgb down trending to 9. Normocytic. On AC but no h/o blood loss.
-Low B12 and iron. Start IV iron supplementation. Start B12 supplementation.
- stool guaiac
DVT PPx - on Xarelto
Code status - Limited DNR: Do Not Intubate
Anticipated Discharge: > 48 hours
Subjective/Interval History
-
Date of Service: August 29, 2024
States of significant weight gain
States passing increasing amount of urine with Lasix
Objective Data
-
Labs:
Laboratory Results
08/29/24
04:51
Sodium 141
Potassium 3.8
Chloride 105
Carbon Dioxide 27
BUN 21 H
Creatinine 1.6 H
Glucose 161 H
Calcium 10.0
Vital Signs:
Vital Signs
Temp Pulse Resp BP Pulse Ox
98.7 F 62 16 138/66 98
08/29/24 08:29 08/29/24 08:29 08/29/24 08:29 08/29/24 08:29 08/29/24 08:29
Data Reviewed
-
Total Time Spent with Patient (in minutes): 55
--- NOTE | 2024-08-29 14:07 | PTCARENOTE ---
pt admitted to room 1141-01 from ED. Pt ambulated from stretcher to bed with quad cane and standby assist. standing weight obtained. Pt AAOX3. +1 edema in lower extremities. pt on room air. placed on telemetry SR heart rate in 60s. pt oriented to
room and unit.
[2024-08-29] MEDS: FERRLECIT 110 MG IV (14:11)
[2024-08-29 17:49] LABS: Glucose - Point of Care 137 mg/dl (70-99)
[2024-08-29] MEDS: AMBIEN 5 MG PO (21:41)
[2024-08-29] MEDS: TOPAMAX 25 MG PO (21:41)
[2024-08-29] MEDS: MELATONIN 3 MG PO (21:42)
[2024-08-29 22:28] LABS: Glucose - Point of Care 183 mg/dl (70-99)
[2024-08-30 03:12] VITALS: BP 158/82
[2024-08-30 06:00] VITALS: BMI 32.0
[2024-08-30] MEDS: SYNTHROID 100 MCG PO (06:32)
[2024-08-30 07:09] LABS: Glucose - Point of Care 147 mg/dl (70-99)
[2024-08-30 07:30] VITALS: BP 136/68
[2024-08-30] MEDS: NOVOLOG FLEXPEN-LOW RESISTANCE SC ×2 (07:41→17:46)
[2024-08-30] MEDS: FARXIGA 10 MG PO (08:41)
[2024-08-30] MEDS: NEURONTIN 400 MG PO ×2 (08:41→21:25)
[2024-08-30] MEDS: VITAMIN B-12 1000 MCG PO (08:41)
[2024-08-30] MEDS: LIPITOR 80 MG PO (08:41)
[2024-08-30] MEDS: VITAMIN D3 (cholecalciferol) 25 MCG PO (08:41)
[2024-08-30] MEDS: ZYLOPRIM 300 MG PO (08:41)
[2024-08-30] MEDS: PROTONIX 40 MG PO (08:41)
[2024-08-30] MEDS: XARELTO 15 MG PO (08:42)
[2024-08-30] MEDS: LASIX 60 MG IV (08:42)
[2024-08-30 09:59] LABS: Blood Urea Nitrogen 26 mg/dl (7-17); Calcium 9.7 mg/dl (8.4-10.2); Carbon Dioxide 28 mmol/L (22-30); Chloride 103 mmol/L (98-107); Estimated Creatinine Clearance 27 ml/min; Glucose 147 mg/dl (70-99); Potassium 3.6 mmol/L (3.5-5.1); Sodium 140 mmol/L (135-145)
[2024-08-30 10:03] LABS: % Basophils 0.4 % (0-2); % Eosinophils 1.8 % (0-6); % Immature Granulocytes 0.2 % (0-0.5); % Lymphocytes 30.3 % (20.5-51.1); % Monocytes 12.5 % (1.7-9.3); % Neutrophils 54.8 % (42.2-75.2); Absolute Eosinophils 0.1 10^3/uL (0-0.7); Absolute Lymphocytes 1.5 10^3/uL (1.2-3.4); Absolute Monocytes 0.6 10^3/uL (0.1-0.6); Absolute Neutrophils 2.7 10^3/uL (1.4-6.5); Hematocrit 30.5 % (37.0-47.0); Hemoglobin 9.5 g/dL (12.0-16.0); Mean Corp Hgb Conc. 31.1 g/dL (33.0-37.0); Mean Corpuscular Hgb 26.2 pg (27.0-31.0); Mean Corpuscular Volume 84.3 fL (81.0-99.0); Mean Platelet Volume 10.8 fL (7.4-10.4); Nucleated Red Blood Cells % 0 %; Platelet Count 219 10^3/uL (130-400); Red Blood Cell Count 3.62 10^6/uL (4.20-5.40); Red Cell Dist. Width 16.5 % (11.5-14.5); White Blood Cell Count 4.9 10^3/uL (4.8-10.8)
[2024-08-30 11:12] VITALS: BP 111/53
[2024-08-30 11:22] LABS: Glucose - Point of Care 239 mg/dl (70-99)
--- NOTE | 2024-08-30 11:22 | CM ---
project construction assistant manager reviewed patient's chart and met with patient and patient states she lives at [facility], patient reports she is independent with adl's and uses a cane with ambulation, patient drives, discharge option
reviewed including visiting nurses and patient is agreeable to [facility]iera nurses, referral sent to [facility].
PCP: Dr. Wan Shaw
Pharmacy [facility].
Plan; Back to [facility] with [facility] nurses
[facility]
[phone]
--- NOTE | 2024-08-30 11:31 | W.PN.HOSP.TC ---
Today's Communication/Plan
-
cont IV lasix
trend cr
IV iron while here
po b12
Assessment / Plan
Assessment / Plan
General: Well Developed, Well Nourished, No Apparent Distress and Comfortable
HEENT: NormoCephalic, Anicteric, Moist mucous membranes and Atraumatic
Cardiac: S1/S2 and Regular Rhythm
Breast: Deferred by me
GI: Soft, Non Tender, Non Distended and Normal Bowel Sounds
Rectal: Deferred by Provider
Genito-urinary: Deferred by me
Musculoskeletal: No Clubbing, No Cyanosis, Edema, Left Lower Extremity and Edema, Right Lower Extremity
Skin: Warm
Neuro: AO x 3 and Nonfocal/grossly intact
Hematologic/Lymphatic: No Lymphadenopathy
Psych: Calm
IMPRESSION:
78-year-old with history of CAD status post CABG and PCI in the past, aortic stenosis status post TAVR 2022, ischemic cardiomyopathy with preserved EF of around 50% who presents to the emergency department with approximately 1 month of increasing
lower extremity swelling and approximately 20 pound weight gain despite ongoing use of torsemide 20 mg daily. She has decreased exercise tolerance but otherwise denies any other symptoms such as orthopnea PND or shortness of breath at rest. X-ray
shows increased pulmonary edema. It also shows cardiomegaly. BNP is elevated at 4300. She has not been having any chest pain and ECG is nonischemic. She had an echocardiogram done routinely today already which shows a preserved EF of 51% and
well-seated normal functioning of TAVR.
PLAN:
Acute on chronic HFpEF
CAD status post CABG
- start lasix 60mg iv q 12 for now (she is on torsemide 20 daily).
- follow daily weights and i/os. Requires invasive monitoring. Not much wt loss.
- continue her jardiance (farxiga)
- Echo with EF of 51%. Stage I diastolic dysfunction.
Paroxysmal AFIB - Not currently on rate control
- continue Xarelto
- monitor on telemetry
Chronic kidney disease stage IIIb
- Monitor creatinine closely with diuresis.
DM II
- Continue with farxiga . Hold other p.o. medication
- sliding scale insulin and Accu-Cheks
Anemia - Fatigue, sleepiness. Hgb down trending to 9. Normocytic. On AC but no h/o blood loss.
-Low B12 and iron. Start IV iron supplementation. Start B12 supplementation.
- stool guaiac
DVT PPx - on Xarelto
Code status - Limited DNR: Do Not Intubate
d/w with daughter over the phone in details
Anticipated Discharge: > 48 hours
Subjective/Interval History
-
Date of Service: August 30, 2024
States passing increasing amount of urine
Objective Data
-
Labs:
Laboratory Results
08/30/24 08/30/24
08:45 08:46
WBC 4.9
Hgb 9.5 L
Hct 30.5 L
Plt Count 219
Sodium 140
Potassium 3.6
Chloride 103
Carbon Dioxide 28
BUN 26 H
Creatinine 1.7 H
Glucose 147 H
Calcium 9.7
Vital Signs:
Vital Signs
Temp Pulse Resp BP Pulse Ox
97.8 F 77 18 111/53 95
08/30/24 11:12 08/30/24 11:12 08/30/24 11:12 08/30/24 11:12 08/30/24 11:12
I&O
08/29/24 08/30/24 08/31/24
06:59 06:59 06:59
Intake Total 480 / 480
Output Total 525 / 525 200 / 200
Balance -45 / -45 -200 / -200
[2024-08-30] MEDS: NOVOLOG FLEXPEN-LOW RESISTANCE 2 UNITS SC (13:36)
[2024-08-30] MEDS: FERRLECIT 110 MG IV (13:38)
[2024-08-30 15:19] VITALS: BP 106/70
--- NOTE | 2024-08-30 15:19 | W.PN.CD ---
Today's Communication / Plan
-
increase lasix to 80mg IV bid
Impression / Plan
-
A/P: 78-year-old female with past medical history of A-fib on Xarelto, CAD status post CABG and PCI, hypertension, dyslipidemia, type 2 diabetes, status post TAVR in 2022, and HFpEF who is here for 1 month of weight gain and lower extremity edema.
Acute on chronic HFpEF
-appears to be from dietary indiscretion at [facility] assisted living
-severe, requiring hospitalization with IV diuresis, and close monitoring of labs/teleunclear goal dry weight
-increase lasix to 80mg IV bid
- cont SGLT2i
CKD3b
-monitor with diuresis
CAD s/p CABG and PCI
- stable no CP trop likely nonischemic myocardial injury 2/2 HF
- Cont Xarelto and statin
Paroxysmal AF
- in sinus cont xarelto
Dyslipidemia
- cont statin
DM2
- on sglt2i cont
echo Aug 28 2024: CONCLUSIONS
LV ejection fraction is 51% by Centeno's method of discs.
Basal to apical septal hypokinesis.
Stage I diastolic dysfunction suggestive of abnormal relaxation.
Well seated, normally functioning #23 mm Hoyt Ultra Resilia TAVR. Peak/mean
gradient 21/11 mmHg.
Ascending aorta measures 3.9 cm.
Compared to previous echo 05/02/23, the findings are similar.
Physical Exam
Vital Signs/Labs
Vital Signs
Temp Pulse Resp BP Pulse Ox
97.8 F 77 18 111/53 95
08/30/24 11:12 08/30/24 11:12 08/30/24 11:12 08/30/24 11:12 08/30/24 11:12
08/29/24 08/30/24 08/31/24
06:59 06:59 06:59
Actual Weight 80.513 kg 79.197 kg
08/30/24 08:46
08/30/24 08:45
Magnesium 2.1 mg/dl (1.6-2.3) 08/29/24 04:51
Triglycerides 171 mg/dl (10-149) H 08/29/24 04:51
LDL Cholesterol, Calc 58 mg/dl 08/29/24 04:51
VLDL Cholesterol, Calc 34 mg/dl (0-30) H 08/29/24 04:51
HDL Cholesterol 65 mg/dl 08/29/24 04:51
Free T4 1.60 ng/dl (0.78-2.19) 08/29/24 04:51
08/28/24
18:30
Uur-L-Hofigkzvxtg Pept 4320
LAB Results
08/28/24 08/28/24
18:30 20:23
Troponin I 0.018 Cancelled
Physical Exam
Constitutional: No acute distress and Comfortable
EENT: Moist mucous membranes
Cardiovascular: Rhythm & rate is regular, Systolic murmur absent, Pedal edema present and JVD present
Respiratory: Respiratory effort normal and Lungs clear to auscul.
Neuro/Psych: AO x 3
Data Reviewed
-
Date of Service: August 30, 2024
EKG: Other (Tele: SR 60s, PVC's)
Labs: Labs Reviewed by me
[2024-08-30 16:29] LABS: Glucose - Point of Care 106 mg/dl (70-99)
[2024-08-30] MEDS: LASIX 80 MG IV (16:55)
[2024-08-30] MEDS: TOPAMAX 25 MG PO (21:25)
[2024-08-30] MEDS: AMBIEN 5 MG PO (21:26)
[2024-08-30] MEDS: MELATONIN 3 MG PO (21:26)
[2024-08-30 21:33] LABS: Glucose - Point of Care 246 mg/dl (70-99)
[2024-08-30 23:00] VITALS: BP 108/62
[2024-08-31 06:00] VITALS: BMI 32.0
[2024-08-31] MEDS: SYNTHROID 100 MCG PO (06:27)
[2024-08-31 06:31] LABS: % Basophils 0.6 % (0-2); % Eosinophils 1.6 % (0-6); % Immature Granulocytes 0.3 % (0-0.5); % Lymphocytes 31.9 % (20.5-51.1); % Neutrophils 56.6 % (42.2-75.2); Absolute Eosinophils 0.1 10^3/uL (0-0.7); Absolute Lymphocytes 2.2 10^3/uL (1.2-3.4); Absolute Monocytes 0.6 10^3/uL (0.1-0.6); Absolute Neutrophils 3.9 10^3/uL (1.4-6.5); Hematocrit 30.6 % (37.0-47.0); Hemoglobin 9.7 g/dL (12.0-16.0); Mean Corp Hgb Conc. 31.7 g/dL (33.0-37.0); Mean Corpuscular Hgb 26.6 pg (27.0-31.0); Mean Corpuscular Volume 84.1 fL (81.0-99.0); Mean Platelet Volume 9.9 fL (7.4-10.4); Nucleated Red Blood Cells % 0 %; Platelet Count 210 10^3/uL (130-400); Red Blood Cell Count 3.64 10^6/uL (4.20-5.40); Red Cell Dist. Width 16.6 % (11.5-14.5); White Blood Cell Count 6.9 10^3/uL (4.8-10.8)
[2024-08-31 07:07] LABS: Blood Urea Nitrogen 29 mg/dl (7-17); Calcium 9.9 mg/dl (8.4-10.2); Carbon Dioxide 28 mmol/L (22-30); Chloride 101 mmol/L (98-107); Estimated Creatinine Clearance 23 ml/min; Glucose 157 mg/dl (70-99); Potassium 3.7 mmol/L (3.5-5.1); Sodium 140 mmol/L (135-145)
[2024-08-31 07:44] VITALS: BP 122/57
[2024-08-31 08:58] LABS: Glucose - Point of Care 156 mg/dl (70-99)
[2024-08-31] MEDS: NOVOLOG FLEXPEN-LOW RESISTANCE 3001 UNITS SC (09:16)
[2024-08-31] MEDS: ZYLOPRIM 300 MG PO (09:17)
[2024-08-31] MEDS: NEURONTIN 400 MG PO (09:18)
[2024-08-31] MEDS: FARXIGA 10 MG PO (09:19)
[2024-08-31] MEDS: PROTONIX 40 MG PO (09:19)
[2024-08-31] MEDS: LIPITOR 80 MG PO (09:20)
[2024-08-31] MEDS: MYRBETRIQ EXTENDED RELEASE 50 MG PO (09:20)
[2024-08-31] MEDS: LASIX 80 MG IV (09:24)
[2024-08-31] MEDS: VITAMIN B-12 1000 MCG PO (09:25)
[2024-08-31] MEDS: VITAMIN D3 (cholecalciferol) 25 MCG PO (09:25)
[2024-08-31] MEDS: XARELTO 15 MG PO (09:25)
--- NOTE | 2024-08-31 10:52 | W.PN.CD ---
Today's Communication / Plan
-
transition to torsemide 40mg daily starting Tues, and check BMP at end of the week
discharge planning
she already has follow up arranged and is aware of her appt (confirmed with daughter as well)
Impression / Plan
-
A/P: 78-year-old female with past medical history of A-fib on Xarelto, CAD status post CABG and PCI, hypertension, dyslipidemia, type 2 diabetes, status post TAVR in 2022, and HFpEF who is here for 1 month of weight gain and lower extremity edema.
Acute on chronic HFpEF: improved s/p IV lasix
-appears to be from dietary indiscretion at [facility]
- cont SGLT2i
-dry weight 79-80kg
-mild KAYDEN noted
-transition to torsemide 40mg daily starting Tues, and check BMP at end of the week
CKD3b
-monitor with diuresis
CAD s/p CABG and PCI
- stable no CP trop likely nonischemic myocardial injury 2/2 HF
- Cont Xarelto and statin
Paroxysmal AF
- in sinus cont xarelto
Dyslipidemia
- cont statin
DM2
- on sglt2i cont
echo Aug 28 2024: CONCLUSIONS
LV ejection fraction is 51% by Centeno's method of discs.
Basal to apical septal hypokinesis.
Stage I diastolic dysfunction suggestive of abnormal relaxation.
Well seated, normally functioning #23 mm Hoyt Ultra Resilia TAVR. Peak/mean
gradient 21/11 mmHg.
Ascending aorta measures 3.9 cm.
Compared to previous echo 05/02/23, the findings are similar.
Physical Exam
Vital Signs/Labs
Vital Signs
Temp Pulse Resp BP Pulse Ox
98.8 F 57 18 122/57 93
08/31/24 07:44 08/31/24 07:44 08/31/24 07:44 08/31/24 07:44 08/31/24 07:44
08/30/24 08/31/24 09/01/24
06:59 06:59 06:59
Actual Weight 79.197 kg 79.379 kg
08/31/24 06:20
08/31/24 06:20
Magnesium 2.1 mg/dl (1.6-2.3) 08/29/24 04:51
Triglycerides 171 mg/dl (10-149) H 08/29/24 04:51
LDL Cholesterol, Calc 58 mg/dl 08/29/24 04:51
VLDL Cholesterol, Calc 34 mg/dl (0-30) H 08/29/24 04:51
HDL Cholesterol 65 mg/dl 08/29/24 04:51
Free T4 1.60 ng/dl (0.78-2.19) 08/29/24 04:51
08/28/24
18:30
Ebh-S-Wtvwospvyso Pept 4320
LAB Results
08/28/24 08/28/24
18:30 20:23
Troponin I 0.018 Cancelled
Physical Exam
Constitutional: No acute distress and Comfortable
EENT: Moist mucous membranes
Cardiovascular: Rhythm & rate is regular, Pedal edema is absent, JVD pressure is normal and Systolic murmur absent
Respiratory: Respiratory effort normal
Neuro/Psych: AO x 3
Data Reviewed
-
Date of Service: August 31, 2024
Labs: Labs Reviewed by me
--- NOTE | 2024-08-31 10:59 | W.PN.HOSP.TC ---
Addendum entered and electronically signed by Silvestre Riggins MD 08/31/24 11:08:
Correction patient also with KAYDEN on CKD3B.
Plan will be to restart diuretics on Sunday. However correction will be torsemide 40mg daily NOT BID.
Original Note:
Today's Communication/Plan
-
dc home
op pcp /cards f/u
Assessment / Plan
Assessment / Plan
General: Well Developed, Well Nourished, No Apparent Distress and Comfortable
HEENT: NormoCephalic, Anicteric, Moist mucous membranes and Atraumatic
Cardiac: S1/S2 and Regular Rhythm
Breast: Deferred by me
GI: Soft, Non Tender, Non Distended and Normal Bowel Sounds
Musculoskeletal: No Clubbing, No Cyanosis, Edema, Left Lower Extremity and Edema, Right Lower Extremity-improved
Skin: Warm
Neuro: AO x 3 and Nonfocal/grossly intact
Hematologic/Lymphatic: No Lymphadenopathy
Psych: Calm
IMPRESSION:
78-year-old with history of CAD status post CABG and PCI in the past, aortic stenosis status post TAVR 2022, ischemic cardiomyopathy with preserved EF of around 50% who presents to the emergency department with approximately 1 month of increasing
lower extremity swelling and approximately 20 pound weight gain despite ongoing use of torsemide 20 mg daily. She has decreased exercise tolerance but otherwise denies any other symptoms such as orthopnea PND or shortness of breath at rest. X-ray
shows increased pulmonary edema. It also shows cardiomegaly. BNP is elevated at 4300. She has not been having any chest pain and ECG is nonischemic. She had an echocardiogram done routinely today already which shows a preserved EF of 51% and
well-seated normal functioning of TAVR.
PLAN:
Acute on chronic HFpEF
CAD status post CABG
- s/p lasix 60mg iv q 12-can be dced. d/w with cardiology plan for torsemide 40mg BID-However start next sunday. BMP next week.
- follow daily weights and i/os. Requires invasive monitoring. Not much wt loss.
- continue her jardiance (farxiga)
- Echo with EF of 51%. Stage I diastolic dysfunction.
Paroxysmal AFIB - Not currently on rate control
- continue Xarelto
- monitor on telemetry
Chronic kidney disease stage IIIb
- Monitor creatinine closely with diuresis.
DM II
- Continue with farxiga . Hold other p.o. medication
- sliding scale insulin and Accu-Cheks
Anemia - Fatigue, sleepiness. Hgb down trending to 9. Normocytic. On AC but no h/o blood loss.
-Low B12 and iron. Start IV iron supplementation. Start B12 supplementation.
- stool guaiac
DVT PPx - on Xarelto
Code status - Limited DNR: Do Not Intubate
d/w with daughter over the phone in details on 08/30/24
d/w with cardiology
More than 30 minutes spent in discharge including
Final examination of the patient
Summarizing hospital stay
Instructions for continuing care to all relevant caregivers
Preparation of discharge records, prescriptions, and referral forms
Total time spent (in minutes): 52
Anticipated Discharge: Today
Subjective/Interval History
-
Date of Service: August 31, 2024
states LE edema has improved.
Objective Data
-
Labs:
Laboratory Results
08/31/24
06:20
WBC 6.9
Hgb 9.7 L
Hct 30.6 L
Plt Count 210
Sodium 140
Potassium 3.7
Chloride 101
Carbon Dioxide 28
BUN 29 H
Creatinine 2.0 H
Glucose 157 H
Calcium 9.9
Vital Signs:
Vital Signs
Temp Pulse Resp BP Pulse Ox
98.8 F 57 18 122/57 93
08/31/24 07:44 08/31/24 07:44 08/31/24 07:44 08/31/24 07:44 08/31/24 07:44
I&O
08/30/24 08/31/24 09/01/24
06:59 06:59 06:59
Intake Total 480 / 480 240 / 240
Output Total 525 / 525 200 / 200
Balance -45 / -45 40 / 40
--- NOTE | 2024-08-31 11:07 | W.DCSUMMARY ---
Discharge Summary
Discharge Data
Date of Admission: 08/28/24
Date of Discharge: 08/31/24
-
Pending Results: No
Hospital Course
78-year-old with history of CAD status post CABG and PCI in the past, aortic stenosis status post TAVR 2022, ischemic cardiomyopathy with preserved EF of around 50% who presents to the emergency department with approximately 1 month of increasing
lower extremity swelling and approximately 20 pound weight gain despite ongoing use of torsemide 20 mg daily. She has decreased exercise tolerance but otherwise denies any other symptoms such as orthopnea PND or shortness of breath at rest. X-ray
shows increased pulmonary edema. It also shows cardiomegaly. BNP is elevated at 4300. She has not been having any chest pain and ECG is nonischemic. She had an echocardiogram done routinely today already which shows a preserved EF of 51% and
well-seated normal functioning of TAVR. Patient was started on aggressive IV Lasix 60 mg twice daily which was increased to 80 mg twice daily. Patient with significant improvement in edema. Patient had mild uptrend in creatinine. IV diuretics
were discontinued. Plan will be to increase torsemide to 40 mg daily starting on 09/02/2024 and repeat BMP with primary doctor. Cardiology office will call patient for follow-up. All patient questions were answered and she was eager to get
discharged home.
Discharge Plan
-
Patient Disposition: Home (Routine Discharge)
Discharge Diagnosis/Procedures: Acute on chronic HFpEF
KAYDEN on CKD stage 3B
Condition: Fair
Diet: 2 Gram Sodium and Restrict fluids to 48 oz
Activity: With assistance and As tolerated
Driving Restrictions: As prior to admission
Blood Work: BMP in 1 week via primary doctor
Instructions: *PCP/Other [employer] Heart Failure Instructions
Referrals:
Wan Shaw, DO [Family Provider] - in less than 1 week
Additional Discharge Medication Instructions: Torsemide has been increased to 40mg daily-DO NOT resume till 09/02/2024
Prescriptions:
New
cyanocobalamin (vitamin B-12) [Vitamin B-12] 1,000 mcg Tablet
1,000 mcg PO DAILY Qty: 30 0RF
Continued
topiramate 25 mg Tablet
25 mg PO HS
acetaminophen [Tylenol] 325 mg Tablet
650 mg PO Q6HPRN PRN (Reason: mild pain)
gabapentin 400 mg Capsule
400 mg PO BID
glipizide 5 mg Tablet Extended Release 24hr
5 mg PO DAILY
melatonin 3 mg Tablet
3 mg PO HS
pantoprazole [Protonix] 40 mg Tablet,Delayed Release (Dr/Ec)
40 mg PO DAILY
allopurinol 300 mg Tablet
300 mg PO DAILY
zolpidem [Ambien] 5 mg Tablet
5 mg PO HSPRN PRN (Reason: sleep)
cholecalciferol (vitamin D3) [Vitamin D3] 25 mcg (1,000 unit) Tablet
25 mcg PO DAILY
Tradjenta 5 mg Tablet
5 mg PO DAILY
Xarelto 15 mg Tablet
15 mg PO DAILY
Jardiance 25 mg Tablet
25 mg PO DAILY
atorvastatin 80 mg tablet
80 mg PO DAILY
tramadol 50 mg tablet
50 mg PO Q6HPRN PRN (Reason: moderate to severe pain)
levothyroxine 100 mcg tablet
100 mcg PO DAILY@0600
nitroglycerin 0.4 mg tablet, sublingual
0.4 mg sublingual Q5MPRN PRN (Reason: chest pain)
mirabegron [Myrbetriq] 50 mg tablet extended release 24 hr
50 mg PO DAILY
Changed
torsemide 20 mg Tablet
40 mg PO DAILY Qty: 60 0RF
Rx Instructions:
Resume on 09/02/2024
Discharge Orders:
Discharge Patient (As Directed); Ordered 08/31/24
Ordered By: Silvestre Riggins
Discharge Date and Time
Print Language: CENTRAL AFRICAN
[2024-08-31 12:56] LABS: Glucose - Point of Care 199 mg/dl (70-99)
[2024-08-31] MEDS: FERRLECIT 110 MG IV (13:13)
[2024-08-31] MEDS: NOVOLOG FLEXPEN-LOW RESISTANCE 1 UNITS SC (14:18)
[2024-08-31 14:52] VITALS: BP 156/72
--- NOTE | 2024-08-31 15:15 | PTCARENOTE ---
Discharge order acknowledged. Instructions reviewed with patient. Pt without further questions. IV site removed. Wheelchair escort to entrance. Pt ambulated to car and drove self.
--- NOTE | 2024-09-01 13:24 | W.HF.CON ---
Heart Failure
- LV Function
Left ventricular function study result: LV Ejection fraction >/= 50%
Ejection Fraction Percentage: 51
- ARNI
Patient already on ARNI: No
Heart Failure ARNI Not Indicated: LV Ejection Fraction >/= 40%
- ACEI/ARB
Patient already on ACEI/ARB: No
Heart Failure ACEI/ARB Not Indicated: LV Ejection Fraction > 40%
- Beta Marco
Patient already on Evidence Based Beta Marco: No
Heart Failure Evidence Based Beta Marco Not Indicated: LV Ejection Fraction > 40%
- Mineralocorticord Receptor Antagonist
Patient already on MRA: No
Heart Failure MRA Not Indicated: LV Ejection Fraction > 40%
- SGLT-2 Inhibitor
Patient already on SGLT-2 Inhibitor: Yes
- Afib Anticoagulation
Patient already on Anticoagulation for Afib: Yes
- NYHA CHF Classification
NYHA CHF Classification Level: Class III - Symptoms w/ min exertion, interferes w/ nml daily activity
- ACC/AHA Stage
ACC/AHA Stage: Stage C: Symptomatic Heart Failure
== END 2024-08-31 15:17 | disposition home health service (06) | DRG 291 ==
LOC: 1 ACUTE 22:41
PROVIDERS: Emergency Medicine; ADMITTING PHYSICIAN Internal Medicine; ATTENDING PHYSICIAN Hospitalist; CONSULT PHYSICIAN Internal Medicine Cardiovascular Disease; EMERGENCY PHYSICIAN Emergency Medicine; FAMILY PHYSICIAN Family Medicine
DX: I13.0 Hypertensive heart and chronic kidney disease with heart failure and stage 1 through stage 4 chronic kidney disease, or unspecified chronic kidney disease (principal); I50.33 Acute on chronic diastolic (congestive) heart failure; N17.9 Acute kidney failure, unspecified; N18.32 Chronic kidney disease, stage 3b; E11.22 Type 2 diabetes mellitus with diabetic chronic kidney disease; I25.10 Atherosclerotic heart disease of native coronary artery without angina pectoris; Z95.1 Presence of aortocoronary bypass graft; Z98.61 Coronary angioplasty status; Z95.2 Presence of prosthetic heart valve; I25.5 Ischemic cardiomyopathy; I48.91 Unspecified atrial fibrillation; D64.9 Anemia, unspecified; E78.00 Pure hypercholesterolemia, unspecified; Z66 Do not resuscitate; Z79.01 Long term (current) use of anticoagulants; Z79.84 Long term (current) use of oral hypoglycemic drugs; Z79.890 Hormone replacement therapy; Z79.899 Other long term (current) drug therapy; Z86.73 Personal history of transient ischemic attack (TIA), and cerebral infarction without residual deficits
CPT/HCPCS: 71046; 80048; 80053; 80061; 82607; 82728; 82962; 83540; 83550; 83735; 83880; 84439; 84443; 84484; 85025; 93005; 96374; 99285; J2916